=== PATIENT | male | born 1950 | race Caucasian/White ===

== ENCOUNTER 2018-10-29 01:22 | Emergency (ER) | payer MEDICARE ==
[2018-10-29] MEDS ORDERED: METHYLPREDNISOLONE INJ 125 MG/2 ML SDV IM ONE (04:26)
[2018-10-29] MEDS ORDERED: FAMOTIDINE 20 MG TABLET PO ONE (04:27)
--- NOTE | 2018-10-29 04:28 | ER Document Report ---
HPI - HPI Time Seen by Provider: 10/29/18 04:15 Pain Level: Denies Context: Patient is a 68-year-old male that comes emergency department chief complaint of a raised itchy red rash on his back, neck, arms, legs, and slightly on the face and chest. He states he has had this several times in the past but it usually resolves sooner than this. He denies any painful locations, fever/chills, difficulty swallowing or breathing. He does have an appointment follow-up with a pattern setter because of this. He does have a history of psoriasis. He has type 2 diabetes, on pills, however he states his A1c is 5.5. Past Medical History - General Information source: Patient - Social History Smoking Status: Current Every Day Smoker Frequency of alcohol use: daily Drug Abuse: None Lives with: Family Family History: Reviewed & Not Pertinent Patient has suicidal ideation: No Patient has homicidal ideation: No - Past Medical History Cardiac Medical History: Reports: Hx Hypertension Endocrine Medical History: Reports: Hx Diabetes Mellitus Type 2 Renal/ Medical History: Denies: Hx Peritoneal Dialysis Past Surgical History: Reports: Hx Bowel Surgery - colon CA - Immunizations Immunizations up to date: Yes Hx Diphtheria, Pertussis, Tetanus Vaccination: Yes Vertical Provider Document - CONSTITUTIONAL General Appearance: WD/WN. negative: No Apparent Distress - Patient occasionally scratching but otherwise is not in distress, no severe distress - INFECTION CONTROL TRAVEL OUTSIDE OF THE [place] IN LAST 30 DAYS: No - HEENT HEENT: Atraumatic, Normal ENT Exam - Patent airway, unremarkable oral pharyngeal exam, normal ENT exam otherwise, Normocephalic, PERRLA - No swelling of the eyelids - NECK Neck: Normal Inspection - RESPIRATORY Respiratory: Breath Sounds Normal, No Respiratory Distress. negative: Wheezing - CARDIOVASCULAR Cardiovascular: Regular Rate, Regular Rhythm - GI/ABDOMEN Gastrointestinal: Abdomen Soft, Abdomen Non-Tender - BACK Back: Normal Inspection - MUSCULOSKELETAL/EXTREMETIES Musculoskeletal/Extremeties: MAEW, FROM, Non-Tender - NEURO Level of Consciousness: Awake, Alert, Appropriate Motor/Sensory: No Motor Deficit, No Sensory Deficit - DERM Integumentary: Rash - Scattered erythematous macular rash over the back, chest, arms, legs, there is also an area over the left shoulder and arm that appears to be urticarial, no vesicles, no bulla, no pustules, no induration or fluctuance. Most of the areas are excoriated. No secondary erythema or abnormal heat noted, no evidence of cellulitis. Course - Re-evaluation Re-evalutation: Patient with what appears to be widespread atopic dermatitis and also small areas of urticarial lesions. There is no evidence of secondary bacterial infection at this time. Patient is afebrile and well-appearing. No evidence of anaphylaxis either. I discussed with patient. I recommended that he could avoid treatment now, follow close with dermatology for better diagnosis and treatment. Patient declines, states he cannot take this any longer. Request treatment with steroids and antihistamines. Because of his widespread rash he was provided with Solu-Medrol here and prednisone, because he is diabetic he was given strict instructions in regards to this, however he sounds like he actually has excellent control. I discussed expectations, follow-up, and return precautions with patient and at bedside. They state understanding and agreement. - Vital Signs Vital signs: Temp Pulse Resp BP Pulse Ox 97.9 F 76 18 126/44 H 94 10/29/18 01:39 10/29/18 01:39 10/29/18 01:39 10/29/18 01:39 10/29/18 01:39 Discharge - Discharge Clinical Impression: Skin rash Condition: Stable Disposition: HOME, SELF-CARE Additional Instructions: Your evaluation is suggestive of an urticaria and atopic dermatitis mix. You have been treated with steroids because of the extent of your rash in your persistent worsening symptoms. This will cloud a diagnosis however unfortunately. Take the prednisone as prescribed, make sure that you avoid carbohydrates while taking this. Your blood sugars might go up some. Also take the antihistamines as prescribed for at least 1 week. Return if you worsen including developing pain, developing or spreading redness, fever/chills, nausea/vomiting, or any other concerning or worsening symptoms. Prescriptions: Cetirizine HCl [24Hour Allergy] 10 mg PO DAILY #30 tablet Famotidine [Pepcid 20 mg Tablet] 20 mg PO BID #14 tablet Prednisone [Deltasone 10 mg Tablet] 10 mg PO ASDIR PRN #21 tablet PRN Reason:
[2018-10-29] MEDS ORDERED: CETIRIZINE 10 MG TABLET PO ONE (04:29)
[2018-10-29 04:40] VITALS: BP 131/59
== END 2018-10-29 05:13 | disposition home or self-care (01) ==
LOC: ER 01:22
DX: R21 Rash and other nonspecific skin eruption (principal); F17.200 Nicotine dependence, unspecified, uncomplicated; I10 Essential (primary) hypertension; E11.9 Type 2 diabetes mellitus without complications
CPT/HCPCS: 99282; 96372; A9270 ×2; J2930